=== PATIENT | female | born 1965 | race American Indian/Alaskan Native ===

== ENCOUNTER 2018-06-22 10:23 | Outpatient (CLI) | payer MEDICARE ==
--- NOTE | 2018-06-22 11:53 | XRay Report ---
Bilateral knees: Pain. AP and lateral views of both knees are included. The knee joint spaces and articular margins appear generally well preserved bilaterally with only very minimal periarticular spurs involving the medial right knee compartment. The bones are well-mineralized and the knee is well aligned. 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 No swelling or effusion in either knee. Impression: No acute findings or significant arthritic change.
== END 2018-06-22 10:24 | disposition home or self-care (01) ==
LOC: XRAY 10:23
PROVIDERS: ATTEND Physical Medicine & Rehabilitation
DX: M25.562 Pain in left knee (principal); M25.561 Pain in right knee; M54.2 Cervicalgia; M54.5 Low back pain

== ENCOUNTER 2018-06-25 09:42 | Outpatient (CLI) | payer MEDICARE ==
--- NOTE | 2018-06-26 08:01 | Magnetic Resonance Report ---
MR CERVICAL SPINE WITHOUT CONTRAST HISTORY: Pain. TECHNIQUE: Axial T2 and T2 gradient. Sagittal T1, T2 and STIR. COMPARISON: CT cervical spine with contrast dated 06/25/10. FINDINGS: The cervical spinal cord is normal size and signal intensity throughout. No abnormal intramedullary signal is detected. No central canal stenosis. Normal height and alignment of the cervical vertebral bodies. Normal bone marrow signal. Congenital fusion at C5-6 is again noted. The discs are normal height. Mild disc desiccation is identified at C4-5 and C6-7. The facet joints are in appropriate relationship. Minimal arthritic changes are identified which are most prominent at C4-5. The paraspinal soft tissues are within normal limits. C2-3: No significant abnormality. C3-4: Minimal bilateral uncovertebral spurring and arthritic changes in the facet joints. C4-5: Mild bilateral uncovertebral spurring and arthritic changes in the facet joints. Mild right neural foraminal narrowing is estimated at 25-50%. C5-6: Congenital fusion. No significant abnormality. C6-7: Minimal bilateral uncovertebral spurring and arthritic changes of the facet joints. C7-T1: No significant abnormality. 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 Minimal cervical spondylosis is identified. The most affected levels appear to be C4-5 and C6-7 which are just above and below the congenital fusion. There is no evidence for large herniation, central canal stenosis or high-grade neural foraminal narrowing. No overwhelming change can be appreciated from the CT myelogram dated 06/25/10.
--- NOTE | 2018-06-26 08:07 | Magnetic Resonance Report ---
MR LUMBAR SPINE WITHOUT CONTRAST HISTORY: Pain. TECHNIQUE: Axial T1 and T2. Sagittal T1, T2 and STIR. COMPARISON: No relevant comparison at this facility. FINDINGS: The conus terminates at the level of L1. No signal abnormality or mass. The cauda equina is normal. No central canal narrowing. There is normal height and alignment of the lumbar vertebra. Normal bone marrow signal. Congenital partial fusion of the right L5 transverse process and superior right sacrum is identified. There appears to be mild pseudarthrosis at this partial fusion. The discs are normal height and signal throughout. No significant degenerative disc disease or bulging disc is identified. Mild osteoarthritic changes are identified throughout all facet joints in the lumbar region. No hypertrophic changes. There is minimal thickening of the lower ligamentum flavum. The neural foramen are widely patent throughout the lumbar region. No nerve impingement is identified. IMPRESSION: Mild diffuse facet arthropathy as described. Pseudarthrosis between the right transverse process of L5 and superior sacrum as described.
== END 2018-06-25 09:43 | disposition home or self-care (01) ==
LOC: MRI 09:42
PROVIDERS: ATTEND Physical Medicine & Rehabilitation
DX: M47.892 Other spondylosis, cervical region (principal); M43.22 Fusion of spine, cervical region; M46.86 Other specified inflammatory spondylopathies, lumbar region
CPT/HCPCS: 72141; 72148

== ENCOUNTER 2020-08-26 21:48 | Emergency (ER) | payer MEDICARE ==
--- NOTE | 2020-08-26 22:26 | Emergency Department Report ---
ED Psych HPI - General Chief Complaint: Psych Stated Complaint: SUICIDAL IDEATIONS Time Seen by Provider: 08/26/20 22:15 Source: patient, EMS Mode of arrival: Ambulatory - History of Present Illness Initial Comments: Patient is 55 years old female with history of asthma and bronchitis. Patient denied any psychiatric history before. Patient stated that symptoms started last February after she broke up with her boyfriend. Patient stated that she felt depressed. Patient stated that she started hearing voices in 40 steps in her house and seeing shadows also. Patient stated that she became more violence and small things will trigger her anger. Patient stated that she had COVID-19 in May and tested negative in July and that caused her to be more depressed. Patient stated that for the last few days she started thinking about overdosing on medication. Patient denied any overdose at this time. MD Complaint: suicidal ideation, feels depressed -: days(s) Associated Psychiatric Symptoms: depression, suicidal ideation, homicidal ideation, racing thoughts, auditory hallucinations, visual hallucinations History of same: No Quality: constant Improves With: none Worsens With: none Associated Symptoms: denies other symptoms Treatments Prior to Arrival: none If Self Harm: admits thoughts of, has plan, intentional overdose - Related Data Home Medications Medication Instructions Recorded Confirmed Last Taken Verapamil ER [Calan Sr] 180 mg PO DAILY 08/26/20 08/28/20 Unknown lisinopriL [Lisinopril] 20 mg PO DAILY 08/26/20 08/28/20 Unknown metFORMIN [Glucophage] 500 mg PO DAILY 08/26/20 08/28/20 Unknown ARIPiprazole [Abilify TAB] 5 mg PO DAILY 08/28/20 08/28/20 Unknown FLUoxetine HCL [Prozac] 10 mg PO DAILY 08/28/20 08/28/20 Unknown Allergies Allergy/AdvReac Type Severity Reaction Status Date / Time hydrocodone [From Vicodin] Allergy Rash/UPSET Verified 08/27/20 10:06 STOMACH ED Review of Systems ROS: Stated complaint: SUICIDAL IDEATIONS Other details as noted in HPI Comment: All other systems reviewed and negative Constitutional: denies: chills, fever Respiratory: denies: cough, shortness of breath, SOB with exertion, SOB at rest Cardiovascular: denies: chest pain, palpitations Gastrointestinal: denies: abdominal pain, nausea, vomiting Musculoskeletal: denies: back pain Neurological: denies: headache, weakness, numbness, paresthesias, confusion Psychiatric: depression, auditory hallucinations, visual hallucinations, homicidal thoughts, suicidal thoughts ED Past Medical Hx - Past Medical History Previous Medical History?: Yes Hx Hypertension: Yes Hx Diabetes: Yes Hx Headaches / Migraines: Yes Hx Psychiatric Treatment: Yes (depression) Hx Asthma: Yes - Surgical History Additional Surgical History: hernia, right knee, - Social History Smoking Status: Never Smoker Substance Use Type: Alcohol, Cocaine, Marijuana - Medications Home Medications: Home Medications Medication Instructions Recorded Confirmed Last Taken Type Verapamil ER [Calan Sr] 180 mg PO DAILY 08/26/20 08/28/20 Unknown History lisinopriL [Lisinopril] 20 mg PO DAILY 08/26/20 08/28/20 Unknown History metFORMIN [Glucophage] 500 mg PO DAILY 08/26/20 08/28/20 Unknown History ARIPiprazole [Abilify TAB] 5 mg PO DAILY 08/28/20 08/28/20 Unknown History FLUoxetine HCL [Prozac] 10 mg PO DAILY 08/28/20 08/28/20 Unknown History ED Physical Exam - General Limitations: No Limitations General appearance: alert, in no apparent distress - Head Head exam: Present: atraumatic, normocephalic, normal inspection - Eye Eye exam: Present: normal appearance, PERRL - ENT ENT exam: Present: normal exam, normal orophraynx, mucous membranes moist - Neck Neck exam: Present: normal inspection, full ROM. Absent: tenderness, meningismus - Respiratory Respiratory exam: Present: normal lung sounds bilaterally. Absent: respiratory distress, wheezes, rales, rhonchi, accessory muscle use, decreased breath sounds, prolonged expiratory - Cardiovascular Cardiovascular Exam: Present: regular rate, normal rhythm, normal heart sounds - GI/Abdominal GI/Abdominal exam: Present: soft, normal bowel sounds. Absent: distended, tenderness, guarding, rebound, rigid - Extremities Exam Extremities exam: Present: normal inspection, full ROM, normal capillary refill. Absent: tenderness - Back Exam Back exam: Present: normal inspection, full ROM. Absent: CVA tenderness (R), CVA tenderness (L) - Neurological Exam Neurological exam: Present: alert, oriented X3, CN II-XII intact - Psychiatric Psychiatric exam: Present: depressed, homicidal ideation, suicidal ideation. Absent: agitated, anxious, flat affect, manic - Skin Skin exam: Present: warm, intact, normal color ED Course Vital Signs 08/26/20 08/27/20 08/27/20 22:00 00:16 11:43 Temperature 98.2 F 98.0 F Pulse Rate 73 68 Respiratory 18 20 18 Rate Blood Pressure 120/94 Blood Pressure 121/82 [Left] O2 Sat by Pulse 100 98 98 Oximetry 08/27/20 08/27/20 08/28/20 20:25 22:00 09:26 Temperature 98.3 F 98.3 F 98.4 F Pulse Rate 65 65 71 Respiratory 16 16 16 Rate Blood Pressure 124/58 Blood Pressure 135/79 135/79 [Left] O2 Sat by Pulse 97 97 94 Oximetry ED Medical Decision Making - Lab Data Result diagrams: 08/26/20 23:18 08/26/20 23:18 Critical care attestation.: If time is entered above; I have spent that time in minutes in the direct care of this critically ill patient, excluding procedure time. ED Disposition Clinical Impression: Suicidal ideation Disposition: [id number]/TX-65 PSY HOSP/PSY UNIT Is pt being admited?: No Condition: Stable Instructions: Persistent Depressive Disorder, Adult Referrals: PRIMARY CARE, [Primary Care Provider] - 3-5 Days
[2020-08-26 23:52] LABS: Basophils # (Auto) 0.1 K/mm3 (0.0-0.1); Basophils % (Auto) 2.4 % (0.0-1.8); Eosinophils # (Auto) 0.1 K/mm3 (0.0-0.4); Eosinophils % (Auto) 1.5 % (0.0-4.3); Hematocrit 41.6 % (30.3-42.9); Hemoglobin 13.7 gm/dl (10.1-14.3); Lymphocytes % (Auto) 41.4 % (13.4-35.0); Mean Corpuscular HGB Conc 33 % (30-34); Mean Corpuscular Volume 82 fl (79-97); Monocytes # (Auto) 0.5 K/mm3 (0.0-0.8); Monocytes % (Auto) 9.9 % (0.0-7.3); Platelet Count 220 K/mm3 (140-440); Red Blood Count 5.07 M/mm3 (3.65-5.03); Red Cell Distribution Width 15.2 % (13.2-15.2)
[2020-08-27] LABS: Amphetamine Screen,Urine PRESUMPTIVE NEGATIVE; Benzodiazepines Screen,Urine PRESUMPTIVE NEGATIVE; Cannabinoid Screen,Urine PRESUMPTIVE NEGATIVE; Cocaine Screen,Urine PRESUMPTIVE POSITIVE; Methadone Screen,Urine PRESUMPTIVE NEGATIVE; Opiate Screen,Urine PRESUMPTIVE NEGATIVE
[2020-08-27 00:09] LABS: Bacteria,Urine 1+ /HPF (Negative); Bilirubin,Urine NEG (Negative); Blood,Urine SM (Negative); Calcium Oxalate Crystals,Urine 3+; Color,Urine Amber (Yellow); Mucus,Urine 3+ /HPF; Urobilinogen,Urine < 2.0 mg/dL (<2.0)
[2020-08-27 00:32] LABS: Blood Urea Nitrogen 13 mg/dL (7-17); Calcium 9.4 mg/dL (8.4-10.2); Hemolysis Index 3
[2020-08-27 00:33] LABS: Alanine Aminotransferase 29 units/L (7-56); Albumin 3.8 g/dL (3.9-5)
[2020-08-27 00:38] LABS: Bilirubin,Direct < 0.2 mg/dL (0-0.2)
[2020-08-27 00:39] LABS: BUN/Creatinine Ratio 19
[2020-08-27] MEDS ORDERED: ZIPRASIDONE MESYLATE 20 MG VIAL IM PRN (06:38)
[2020-08-27] MEDS ORDERED: MAGNESIUM HYDROXIDE (MOM) ORAL LIQD UDC PO PRN (09:30)
[2020-08-27] MEDS ORDERED: ALUM-MAG HYDROXIDE-SIMETHICONE 200-200-20MG/5ML ORAL LIQD 30 ML PO PRN (09:30)
[2020-08-27] MEDS ORDERED: IBUPROFEN 400 MG TAB PO PRN (09:32)
[2020-08-27] MEDS ORDERED: IBUPROFEN 800 MG TAB ONE (10:02)
[2020-08-27] MEDS ORDERED: ACETAMINOPHEN 325 MG TAB PO PRN (10:33)
--- NOTE | 2020-08-27 11:35 | Consultation ---
History of Present Illness - Reason for Consult Consult date: 08/27/20 Reason for consult: SI - History of Present Psychiatric Illness Per ED Note: Patient is 55 years old female with history of asthma and bronchitis. Patient denied any psychiatric history before. Patient stated that symptoms started last February after she broke up with her boyfriend. Patient stated that she felt depressed. Patient stated that she started hearing voices in 40 [address] in her house and seeing shadows also. Patient stated that she became more violence and small things will trigger her anger. Patient stated that she had COVID-19 in May and tested negative in July and that caused her to be more depressed. Patient stated that for the last few days she started thinking about overdosing on medication. Patient denied any overdose at this time. Araseli Baig is a 55y/o female patient who presented to the ER for depression, hallucinations and SI. During my assessment of the patient, she is a/x 3. She is calm and cooperative. She says she came to the hospital for "having migraines and not feeling well." The patient also verbalizes suicidal t houghts. SHe denies having a plan. She says "I'm depressed and seeing and hearing things." The patient says she's seeing shadows, and hearing whispering. The patient says she sleep sometimes but other times she does not because her "thoughts are racing at night." The patient verbalizes "crack, and weed" use. She says "alcohol sometimes." The patient denies any psych medications or past history of psych disorders. PAST PSYCHIATRIC HISTORY: Diagnoses: Denies Suicide attempts or Self-harm behavior: Denies Prior psychiatric hospitalizations: Denies Substance Abuse history: THC, crack Previous psychiatric medications tried: Denies Outpatient treatment: Denies PAST MEDICAL HISTORY: None reported Family Psychiatric History: None reported or documented SOCIAL HISTORY Marital Status: Single Living Arrangements: "by myself" Employment Status: Disabled Access to guns/weapons: Denies Education: high school History of Abuse: Denies Legal History: Denies REVIEW OF SYSTEMS Constitutional: Negative for weight loss ENT: Negative for stridor Respiratory: Negative for cough or hemoptysis All other systems reviewed and are negative MENTAL STATUS EXAMINATION General Appearance and Behavior: Age appropriate, good hygiene, not wearing appropriate clothes, calm, cooperative, polite Cooperation: Participating, not forthcoming Psychomotor Behavior: Psychomotor normal Mood: Depressed Affect and affective range: Restricted Thought Process: illogical Speech: Normal tone and pace Thought Content Suicidal Ideation: Yes Homicidal Ideation: Denies Hallucinations: A/V Delusions: None elicited Impulse Control: Limited Insight and Judgment: Limited insight and judgment Memory: Limited Attention: Undivided Orientation: A/o x 3 Assessment and Plan (1) Major Depressive Disorder, Severe with Psychotic Symptoms Treatment Plan 1013 Start Abilify 5mg po daily Start Prozac 10mg po daily Start Trazodone 50mg po qhs Sitter: Defer to primary Medical: Per primary Disposition: Recommend acute psychiatric inpatient Will follow. Thank you for this consult. Case staffed with Dr. Couch. Medications and Allergies Allergies Allergy/AdvReac Type Severity Reaction Status Date / Time hydrocodone [From Vicodin] Allergy Rash/UPSET Verified 08/27/20 10:06 STOMACH Home Medications Medication Instructions Recorded Confirmed Last Taken Type Verapamil ER [Calan Sr] 180 mg PO DAILY 08/26/20 08/26/20 Unknown History lisinopriL [Lisinopril] 20 mg PO DAILY 08/26/20 08/26/20 Unknown History metFORMIN [Glucophage] 500 mg PO DAILY 08/26/20 08/26/20 Unknown History Active Meds: Active Medications Acetaminophen (Acetaminophen 325 Mg Tab) 650 mg PO Q6H PRN PRN Reason: Pain, Mild (1-3) Last Admin: 08/27/20 10:36 Dose: 650 mg Documented by: Al Hydrox/Mg Hydrox/Simethicone (Alum-Mag Hydroxide-Simethicone [phone]/5ml Oral Liqd 30 Ml) 30 ml PO Q4HR PRN PRN Reason: Indigestion Ibuprofen (Ibuprofen 400 Mg Tab) 400 mg PO Q6H PRN PRN Reason: pain Magnesium Hydroxide (Magnesium Hydroxide (Mom) Oral Liqd Udc) 30 ml PO Q12HR PRN PRN Reason: Constipation Ziprasidone (Ziprasidone Mesylate 20 Mg Vial) 10 mg IM Q12H PRN PRN Reason: Agitation Mental Status Exam - Vital signs Last Vital Signs Temp 98.2 F 08/26/20 22:00 Pulse 73 08/26/20 22:00 Resp 20 08/27/20 00:16 BP 120/94 04/10/21 22:00 Pulse Ox 98 08/27/20 00:16 Results Result Diagrams: 08/26/20 23:18 08/26/20 23:18 Abnormal lab results 08/26/20 08/26/20 08/26/20 Range/Units 23:18 23:18 23:18 RBC (3.65-5.03) M/mm3 MCH (28-32) pg Lymph % (Auto) (13.4-35.0) % [place] % (Auto) (0.0-7.3) % Baso % (Auto) (0.0-1.8) % Potassium 3.4 L (3.6-5.0) mmol/L Carbon Dioxide 33 H (22-30) mmol/L Albumin (3.9-5) g/dL Ur Specific [place] (1.003-1.030) U Epithel Cells (Auto) (0-13.0) /HPF Salicylates < 0.3 L (2.8-20.0) mg/dL Acetaminophen 5.0 L (10.0-30.0) ug/mL 08/26/20 08/26/20 08/26/20 Range/Units 23:18 23:18 Unknown RBC 5.07 H (3.65-5.03) M/mm3 MCH 27 L (28-32) pg Lymph % (Auto) 41.4 H (13.4-35.0) % [place] % (Auto) 9.9 H (0.0-7.3) % Baso % (Auto) 2.4 H (0.0-1.8) % Potassium (3.6-5.0) mmol/L Carbon Dioxide (22-30) mmol/L Albumin 3.8 L (3.9-5) g/dL Ur Specific [place] 1.031 H (1.003-1.030) U Epithel Cells (Auto) 23.0 H (0-13.0) /HPF Salicylates (2.8-20.0) mg/dL Acetaminophen (10.0-30.0) ug/mL All other labs normal.
[2020-08-27] MEDS: FLUoxetine 10 MG TAB PO SCH (13:00)
[2020-08-27] MEDS: ARIPiprazole 5 MG TAB PO SCH (13:00)
[2020-08-27] MEDS ORDERED: traZODone 50 MG TAB PO SCH (22:00)
[2020-08-28] MEDS: FLUoxetine 10 MG TAB PO SCH (09:27)
[2020-08-28] MEDS: ARIPiprazole 5 MG TAB PO SCH (09:27)
[2020-08-28 10:21] VITALS: BP 124/58
== END 2020-08-27 16:19 ==
LOC: ED 21:48 → 5A 08-27 16:19 → UNDOADMIN 08-27 19:23 → UNDODISIN 08-27 19:23
DX: R45.851 Suicidal ideations (principal); I10 Essential (primary) hypertension; E11.9 Type 2 diabetes mellitus without complications; G43.909 Migraine, unspecified, not intractable, without status migrainosus; J45.909 Unspecified asthma, uncomplicated; F14.10 Cocaine abuse, uncomplicated; F12.10 Cannabis abuse, uncomplicated; Z98.890 Other specified postprocedural states; Z79.899 Other long term (current) drug therapy; Z88.8 Allergy status to other drugs, medicaments and biological substances
CPT/HCPCS: 36415; 80048; 80076; 80307; 80320; 81001; 82962; 84703; 85025; G0378; G0480; U0003